=== PATIENT | female | born 1955 | race Caucasian/White ===

== ENCOUNTER 2019-06-13 08:18 | Emergency (ER) | payer MEDICARE ==
[2019-06-13] MEDS ORDERED: Sodium Bicarb 50 MEQ/50 ML VIAL ONE (08:29)
[2019-06-13] MEDS ORDERED: Calcium Chloride 1 GM/10 ML Abboject SYRINGE ONE ×2 (13:45→13:46)
[2019-06-13] MEDS ORDERED: EPINEPHrine 1 MG/10 ML Abboject SYRINGE ONE ×2 (13:45→13:46)
[2019-06-13] MEDS ORDERED: Atropine Sulfate 1 mg/10 ml Syringe ONE (13:46)
[2019-06-13] MEDS ORDERED: Sodium Bicarb 50 MEQ/50 ML Abboject 8.4% SYRINGE ONE (13:46)
== END 2019-06-13 08:43 | disposition expired ==
LOC: ERS 08:18
DX: I46.9 Cardiac arrest, cause unspecified (principal); E11.9 Type 2 diabetes mellitus without complications; E03.9 Hypothyroidism, unspecified; I10 Essential (primary) hypertension; F41.9 Anxiety disorder, unspecified
CPT/HCPCS: 31500; 36556; 92950; 96374; 96375; J0171; J0461